=== PATIENT | male | born 1970 | race Caucasian/White ===

== ENCOUNTER 2022-02-01 18:45 | Inpatient (IN) | payer BC ==
[~2022-02-01] VITALS: Ht 180.3 cm; Wt 121.3 kg
[2022-02-01 22:55] LABS: Base Excess Venous -1.5 mmol/L; Bicarbonate Venous 22.3 mmol/L (24.0-30.0); PCO2 Venous 47.3 mmHg (38-42); pH Blood Venous 7.32 (7.34-7.37)
[2022-02-02 02:06] LABS: BASOPHILS ABSOLUTE AUTO 0.04 K/mm3 (0.00-0.23); BASOPHILS PERCENT AUTO 0 % (0-2); EOSINOPHILS ABSOLUTE AUTO 0.01 K/mm3 (0.00-0.68); EOSINOPHILS PERCENT AUTO 0 % (0-6); Hematocrit 54.6 % (37.0-53.0); IMMATURE GRAN ABSOLUTE AUTO 0.05 K/mm3 (0.00-0.10); IMMATURE GRAN PERCENT AUTO 0 % (0-1); LYMPHOCYTES ABSOLUTE AUTO 0.36 K/mm3 (0.84-5.20); LYMPHOCYTES PERCENT AUTO 3 % (21-46); MONOCYTES ABSOLUTE AUTO 0.17 K/mm3 (0.16-1.47); MONOCYTES PERCENT AUTO 1 % (4-13); Mean Corpuscular HGB 31.9 pg (26.0-34.0); Mean Corpuscular Volume 97 fL (80-100); Mean Platelet Volume 10.7 fL (9.1-12.4); NEUTROPHILS ABSOLUTE AUTO 12.96 K/mm3 (1.96-9.15); NEUTROPHILS PERCENT AUTO 95 % (41-73); Platelet Count 214 K/mm3 (150-400); RDW Coefficient Variation 13.7 % (11.7-14.2); RDW Standard Deviation 49.9 fL (35.1-46.3); Red Blood Cell Count 5.64 M/mm3 (4.30-5.90); White Blood Cell Count 13.59 K/mm3 (4.00-11.30)
[2022-02-02 02:24] LABS: Albumin, Blood 3.6 g/dL (3.4-5.0); Albumin/Globulin Ratio 0.8 (0.8-1.8); Bilirubin, Total 0.6 mg/dL (0.1-1.0); Bun/Creatinine Ratio 11.6 (12.0-20.0); Calcium, Blood 8.6 mg/dL (8.5-10.1); Creatinine, Blood 1.38 mg/dL (0.60-1.20); Globulin, Blood 4.3 g/dL (2.2-4.0); Magnesium, Blood 2.8 mg/dL (1.6-2.4); Potassium, Blood 3.8 mmol/L (3.5-5.5); Total Protein, Blood 7.9 g/dL (6.4-8.2)
--- NOTE | 2022-02-02 03:32 | NUR ---
CALL TO DOCTOR THIS RN CALLS DR LARSEN TO NOTIFY OF LACTIC, NOTIFIED THAT RESIDENT DR Stone SAW PT. THIS RN DISCUSSES CONCERN WITH DR Stone REGARDING LACTIC, PT CAP REFILL, LETHARGY, AND NO FLUID BOLUSES. RESIDENT DR Stoen STATES CONCERN FOR PT'S CARDIAC FUNCTION AND WANTS TO BE CAREFUL WITH ADMIN OF FLUID, ORDER FOR NS 125 MLS/HR FOR X2 BAGS AND X1 500 ML BOLUS OF NS OVER AN HOUR TO BE GIVEN NOW.
[2022-02-02 04:43] LABS: PCO2 Arterial 39.5 mmHg (35-45); PO2 Arterial 83.8 mmHg (80-100)
[2022-02-02 04:45] LABS: pH Blood Arterial 7.28 (7.35-7.45)
[2022-02-02 06:39] LABS: U Amphetamine Screen DETECTED; U Barbituate Screen Not Detected; U Benzodiazapine Screen Not Detected; U Buprenorphine Screen Not Detected; U Cannabinoids Screen DETECTED; U Cocaine Screen Not Detected; U Methadone Screen Not Detected; U Methamphetamine Screen DETECTED; U Opiates Screen Not Detected; U Oxycodone Screen Not Detected; U Phencyclidine Screen Not Detected; U Propoxyphene Screen Not Detected
--- NOTE | 2022-02-02 06:49 | NUR ---
CALL TO DR MARTÍNEZ THIS RN CALLS TO NOTIFY DR MARTÍNEZ OF PT C/O WORSENED BREATHING RECENTLY THIS AM, NOTIFIED THAT RESULT OF CHEST XRAY HAS NOT BEEN REPORTED BACK AND REPEAT IS BEING DONE PER ORDER NOW. DR MARTÍNEZ TO REVIEW XRAY.
--- NOTE | 2022-02-02 08:28 | NUR ---
SHIFT SUMMARY PT AOX4 WHEN ARRIVED FROM ER, APPEARED LETHARGIC. INCREASED IN SOMNOLENCE AFTER ARRIVAL. UNABLE TO ANSWER QUESTIONS FOR ADMISSION BY THIS RN. UNSURE OF MEDS, STATES HE HAS NOT BEEN TAKING THEM. DENIED PAIN. BREATHING APPEARED LABORED, PT ARRIVED ON CPAP ON 2L, THIS RN INCREASED TO 3 L D/T DESATS INTO 80'S. ABG REPORTED BACK TO THIS RN CRITICAL THIS AM AFTER PT ARRIVAL TO PCU FROM ER. RESIDENT NOTIFIED, BICARB ORDERED AND ADMIN. PT URINATED IN URINAL 600 MLS OF HARSHIL COLORED URINE. LS COARSE WITH CRACKLES IN LOWER BASES.
[2022-02-02 09:44] LABS: SARS-Cov-2 (COVID-19) PCR, MMC NEGATIVE (NEGATIVE)
[2022-02-02] MEDS ORDERED: PROAIR RESPICL90 MCG INH (12:05)
[2022-02-02] MEDS ORDERED: ANORO ELLIPTA1 EACH INH (12:06)
[2022-02-02] MEDS ORDERED: Aspir 8181 MG PO (12:06)
[2022-02-02] MEDS ORDERED: ATOR20 PO (12:07)
[2022-02-02] MEDS ORDERED: Prinivil10 MG PO (12:08)
[2022-02-02] MEDS ORDERED: LISI5 PO (12:09)
[2022-02-02] MEDS ORDERED: METF500 PO (12:10)
[2022-02-02] MEDS ORDERED: METO50ER PO (12:11)
[2022-02-02] MEDS ORDERED: ALDACTONE25 MG PO (12:12)
[2022-02-02] MEDS ORDERED: SYMBICORT 16010.2 GM INH (12:16)
[2022-02-02] MEDS ORDERED: TORSE20 PO (12:18)
[2022-02-02] MEDS ORDERED: FURO40 PO (12:28)
[2022-02-02] MEDS ORDERED: POTCHL20ER PO (12:28)
--- NOTE | 2022-02-02 16:32 | NUR ---
SHIFT SUMMARY PATIENT LETHARGIC THIS AM AT BEGINNING OF SHIFT AND DEPENDENT ON CPAP DUE TO LETHARGY TO MAINTAIN SATS. PATIENT WAS ABLE TO WAKE UP ENOUGH TO EAT LUNCH WITH 3L NC WITH O2 SATS >92%. PATIENT WAS PUT BACK ON CPAP AROUND 1330 DUE TO FALLING ASLEEP AND DESATTING INTO THE MID 80S. CPAP WITH 3L BLEED IN. RR 20-26 THROUGHOUT SHIFT. SBP 140-150S. PATIENT PUT BACK ON NC WITH 3L AROUND 1500 AND HAS BEEN MAINTAINING O2 SATS >92% SINCE. CURRENTLY VISITING WITH SIGNIFICANT OTHER IN ROOM. PATIENT BECOMES TACHYPNEIC WITH CONVERSATION BUT IS ABLE TO MAINTAIN O2 SATS STILL. PATIENT ANSWERING QUESTIONS APPROPRIATELY AND FULLY ORIENTED. MD CONNOLLY WITH ORDERS FOR 1.5 LITERS OF SODIUM BICARB DRIP. PATIENT FINISHED 1L AT 1620, THIS RN WAS ABOUT TO GIVE THE REST PER EMAR WHILE MD BURDEN AT BEDSIDE; MD BURDEN WITH VERBAL ORDER TO NOT GIVE THE REMAINING 500MLS OF THE SODIUM BICARB DRIP. SEE EMAR. PATIENT GIVEN FLUTTER VALVE AND ENCOURAGED TO CLEAR SECRETIONS. PRODUCTIVE COUGH NOTED. DENIES CHEST PAIN. PATIENT'S MED REC DONE BY THIS RN PER FAXED MED LIST FROM [facility]; PATIENT STATES HE IS UNSURE WHAT HE TAKES AND WHAT HE IS SUPPOSED TO TAKE. ADMITS TO NOT TAKING ANY MEDS FOR THE LAST MONTH. SIGNIFICANT OTHER AT BEDSIDE. BED IN LOWEST POSITION AND CALL LIGHT WITHIN REACH.
[2022-02-03 03:49] LABS: BASOPHILS ABSOLUTE AUTO 0.03 K/mm3 (0.00-0.23); BASOPHILS PERCENT AUTO 0 % (0-2); EOSINOPHILS PERCENT AUTO 0 % (0-6); Hematocrit 48.6 % (37.0-53.0); Hemoglobin 16.6 g/dL (13.5-17.5); IMMATURE GRAN ABSOLUTE AUTO 0.17 K/mm3 (0.00-0.10); IMMATURE GRAN PERCENT AUTO 1 % (0-1); LYMPHOCYTES ABSOLUTE AUTO 0.68 K/mm3 (0.84-5.20); LYMPHOCYTES PERCENT AUTO 3 % (21-46); MONOCYTES ABSOLUTE AUTO 0.66 K/mm3 (0.16-1.47); MONOCYTES PERCENT AUTO 3 % (4-13); Mean Corpuscular HGB 32.5 pg (26.0-34.0); Mean Corpuscular HGB Conc 34.2 g/dL (31.5-36.5); Mean Corpuscular Volume 95 fL (80-100); Mean Platelet Volume 11.1 fL (9.1-12.4); NEUTROPHILS ABSOLUTE AUTO 20.17 K/mm3 (1.96-9.15); NEUTROPHILS PERCENT AUTO 93 % (41-73); Platelet Count 247 K/mm3 (150-400); RDW Coefficient Variation 13.8 % (11.7-14.2); Red Blood Cell Count 5.11 M/mm3 (4.30-5.90); White Blood Cell Count 21.71 K/mm3 (4.00-11.30)
[2022-02-03 04:09] LABS: Albumin, Blood 3.2 g/dL (3.4-5.0); Anion Gap 4 mmol/L (6-16); Blood Urea Nitrogen 26 mg/dL (8-24); Bun/Creatinine Ratio 20.6 (12.0-20.0); CO2, Blood 28 mmol/L (21-32); Calcium, Blood 8.5 mg/dL (8.5-10.1); Chloride, Blood 104 mmol/L (98-108); Creatinine, Blood 1.26 mg/dL (0.60-1.20); Glomerular Filtration Rate 70 (60-); Glucose, Blood 204 mg/dL (70-99); Magnesium, Blood 2.5 mg/dL (1.6-2.4); Phosphorus, Blood 2.6 mg/dL (2.5-4.9); Potassium, Blood 4.9 mmol/L (3.5-5.5); Sodium, Blood 136 mmol/L (136-145)
--- NOTE | 2022-02-03 06:12 | NUR ---
Shift Summary Pt oriented when awake, lethargic at start of shift. Placed on Cpap d/t desat to 88-89% on 3 L O2 via NC. Pt rhythm appears ST BBB 90's-100's. Sats 90-93% on Cpap at 4 L. No edema noted to BLE, some non-pitting edema to BUE. RT changes pt from CPAP to Bipap Ipap 20, Epap 16 3-4 L bleed in of O2. Pt sats 89-95% on bipap, issues with maintaining good seal on mask. Klaus RT changed out mask in night which seemed to help, at start of shift, mask found to have a tear in the lining. Pt sleeps heavily throughout shift, diaphoretic at times while asleep as per prior night. ST BBB 80's-100's.
--- NOTE | 2022-02-03 09:40 | NUR ---
ASSUMPTION OF CARE THIS RN ASSUMED CARE OF PATIENT AT 0700. REPORT TAKEN FROM CAMELIA JARAMILLO. PATIENT IS ON 4L VIA NC WITH O2 SATS >92%. RT TO BEDSIDE THIS AM WITH BREATHING TREATMENT. PATIENT DENIES ALL PAIN. MEDICATED PER EMAR. VITALS STABLE. PATIENT REFUSED BIPAP FOR THIS RN AND WANTS TO REMAIN ON THE NASAL CANULA FOR NOW. THIS RN WILL REASSESS IF NEED ARISES FOR BIPAP WHILE PATIENT IS SLEEPING. PATIENT CALLING APPROPRIATELY AND ORIENTED FULLY. BED IN LOWEST POSITION AND CALL LIGHT WITHIN REACH.
--- NOTE | 2022-02-03 13:35 | NUR ---
Spiritual Care - Nurse Request Pt. is awake in bed and sobbing. Taking a pause in his grief, he welcomes my visit. Pt. displays evidence of unresolved greif do to the recent loss of his mother. Through theraputic listening and a calming presence Pt. reveals additional sources of loss in his life, and verbalizes his role in not taking better care of his own health. Waves of catharsis are balanced by engagement. Prayed with Pt. Recommend Bereavement support. Will provide Pt. with local bereavement group contact info. Pt. verbalizes gratitude for the spiritual care visit.
--- NOTE | 2022-02-03 17:23 | NUR ---
SHIFT SUMMARY PATIENT A&OX4. PATIENT ON 3L VIA NC CURRENTLY WITH O2 SATS >94%. PATIENT SBA TO BATHROOM WITH GAIT BELT AND ASSIST FROM STAFF DUE TO BEING THE FIRST TIME HE IS GETTING UP SINCE ADMISSION. PATIENT STEADY ON HIS FEET. VITALS STABLE. PATIENT WITH COMPLAINTS OF CONSTIPATION. HYPERACTIVE BOWEL SOUNDS NOTED. STOMACH DISTENDED AND FIRM IN THE UPPER QUADRANTS OF ABDOMEN. PATIENT COMPLAINS OF FEELING BLOATED AND BELCHING. MD GODDARD NOTIFIED. ORDERS FOR STOOL SOFTENERS AND MIRALAX ORDERED. PATIENT TOLERATED WELL. PATIENT CURRENTLY STATING THAT HE IS PASSING GAS. NO ACUTE EVENTS DURING THIS SHIFT. VITALS STABLE. PATIENT EATING DINNER WITH SIGNIFICANT OTHER AT BEDSIDE. BED IN LOWEST POSITION AND CALL LIGHT WITHIN REACH
--- NOTE | 2022-02-04 05:56 | NUR ---
PT SLEPT MAJORITY OF NIGHT. RT APPLIED BIPAP AND PT TOLERATED FOR ANOUT 4 HOURS AND RIPPED IT OFF AND REFUSED REAPPLIED. NASAL CANNULA APPLIED AT THIS TIME AND FOR REMAINDER OF NIGHT.
--- NOTE | 2022-02-04 10:51 | NUR ---
ASSUMPTION OF CARE THIS RN ASSUMED CARE OF PATIENT AT 0700. REPORT TAKEN FROM MARY JARAMILLO. PATIENT ON 3L VIA NC WITH STABLE VITALS. DENIES SOB. STATES HE "FEELS GOOD". PATIENT SBA AND WALKED AROUND ROOM THIS MORNING. MEDICATED PER EMAR. PATIENT IN BED WITH BED IN LOWEST POSITION AND CALL LIGHT WITHIN REACH
--- NOTE | 2022-02-04 16:56 | NUR ---
SHIFT SUMMARY PATIENT A&OX4 THROUGHOUT THIS SHIFT. PATIENT HAD NO OCCASIONS OF LETHARGY FOR THIS RN. INDEPENDENT WITH TRANSFERRING/AMBULATION AND ADLs. NO ACUTE EVENTS DURING THIS SHIFT. VITALS STABLE. PATIENT ON 2L NC WITH O2 SATS 92-95%. CONTINUES TO BE DYSPNEIC WITH EXERTION. PATIENT HAD A SHOWER THIS AFTERNOON. CONTINUES TO HAVE PERIODS WHERE HE IS DIAPHORETIC BUT VERBALIZES RELIEF WITH FAN ON BEDSIDE TABLE. PATIENT DENIES PAIN. CURRENTLY IN BED HAVING A CONVERSATION WITH SIGNIFICANT OTHER WHO IS IN THE ROOM VISITING. BED IN LOWEST POSITION, CALL LIGHT WITHIN REACH. WILL CONTINUE TO MONITOR UNTIL SHIFT CHANGE AT 1900.
--- NOTE | 2022-02-05 01:32 | NUR ---
PT DESATTING WHILE ASLEEP, INITIALLY REFUSING BIPAP. ATTEMPTED NC, PT SATTING WELL FOR A COUPLE HOURS THEN DESATS AND BECOMES BRADYCARDIC IN THE 40'S. READJUSTED BIPAP, DOES NOT SEEM TO BE LEAKING AT THIS TIME (PT C/O LEAK KEEPING HIM AWAKE), CURRENTLY O2 SATS >90% WITH BIPAP ON. OTHERWISE PT STATING "I FEEL MUCH BETTER".
[2022-02-05 03:20] LABS: BASOPHILS ABSOLUTE AUTO 0.03 K/mm3 (0.00-0.23); BASOPHILS PERCENT AUTO 0 % (0-2); EOSINOPHILS PERCENT AUTO 0 % (0-6); Hematocrit 52.2 % (37.0-53.0); Hemoglobin 17.3 g/dL (13.5-17.5); IMMATURE GRAN ABSOLUTE AUTO 0.19 K/mm3 (0.00-0.10); IMMATURE GRAN PERCENT AUTO 1 % (0-1); LYMPHOCYTES ABSOLUTE AUTO 0.88 K/mm3 (0.84-5.20); LYMPHOCYTES PERCENT AUTO 6 % (21-46); MONOCYTES ABSOLUTE AUTO 0.58 K/mm3 (0.16-1.47); MONOCYTES PERCENT AUTO 4 % (4-13); Mean Corpuscular HGB 31.9 pg (26.0-34.0); Mean Corpuscular HGB Conc 33.1 g/dL (31.5-36.5); Mean Corpuscular Volume 96 fL (80-100); NEUTROPHILS ABSOLUTE AUTO 13.63 K/mm3 (1.96-9.15); NEUTROPHILS PERCENT AUTO 89 % (41-73); Platelet Count 269 K/mm3 (150-400); RDW Coefficient Variation 13.6 % (11.7-14.2); RDW Standard Deviation 48.6 fL (35.1-46.3); Red Blood Cell Count 5.43 M/mm3 (4.30-5.90); White Blood Cell Count 15.31 K/mm3 (4.00-11.30)
[2022-02-05 03:38] LABS: Albumin, Blood 3.3 g/dL (3.4-5.0); Anion Gap 7 mmol/L (6-16); Blood Urea Nitrogen 40 mg/dL (8-24); CO2, Blood 28 mmol/L (21-32); Calcium, Blood 8.6 mg/dL (8.5-10.1); Chloride, Blood 100 mmol/L (98-108); Creatinine, Blood 1.29 mg/dL (0.60-1.20); Glomerular Filtration Rate 68 (60-); Glucose, Blood 195 mg/dL (70-99); Phosphorus, Blood 3.4 mg/dL (2.5-4.9); Potassium, Blood 5.1 mmol/L (3.5-5.5); Sodium, Blood 135 mmol/L (136-145)
--- NOTE | 2022-02-05 05:49 | NUR ---
SHIFT SUMMARY PT REMAINS ALERT AND ORIENTED, ABLE TO SLEEP ON/OFF T/O THE NIGHT. TOLERATING BIPAP BETTER AFTER ADJUSTMENT. NO ACUTE CHANGES TO PT CONDITION, DENIES SOB WHILE AT REST. REMAINS DYSPNEIC UPON EXERTION. VSS. WILL REPORT TO ONCOMING NURSE.
--- NOTE | 2022-02-05 17:08 | NUR ---
SHIFT SUMMARY PT HAS EXPRESSED DESIRE TO BE DISCHARGED BUT IS WILLING TO COMPLY AND UNDERSTANDS THE NEED FOR FURTHER INPATIENT STAY. PT WAS UP AND AMBULATING IN THE HALLWAYS WITH A FAMILY MEMBER FOR ESCORT. PT DEMONSTRATED NO PHYSICAL OR RESPIRATORY DIFFICULTY WHILE AMBULATING. SBP HAS REMAINED ELEVATED, 150'S, ALL OTHER VITALS STABLE.
[2022-02-06 04:17] LABS: BASOPHILS ABSOLUTE AUTO 0.08 K/mm3 (0.00-0.23); BASOPHILS PERCENT AUTO 1 % (0-2); EOSINOPHILS ABSOLUTE AUTO 0.04 K/mm3 (0.00-0.68); EOSINOPHILS PERCENT AUTO 0 % (0-6); Hematocrit 55.9 % (37.0-53.0); Hemoglobin 18.7 g/dL (13.5-17.5); IMMATURE GRAN ABSOLUTE AUTO 0.28 K/mm3 (0.00-0.10); IMMATURE GRAN PERCENT AUTO 2 % (0-1); LYMPHOCYTES ABSOLUTE AUTO 2.61 K/mm3 (0.84-5.20); LYMPHOCYTES PERCENT AUTO 21 % (21-46); MONOCYTES ABSOLUTE AUTO 1.26 K/mm3 (0.16-1.47); MONOCYTES PERCENT AUTO 10 % (4-13); Mean Corpuscular HGB 31.6 pg (26.0-34.0); Mean Corpuscular HGB Conc 33.5 g/dL (31.5-36.5); Mean Corpuscular Volume 95 fL (80-100); NEUTROPHILS ABSOLUTE AUTO 8.34 K/mm3 (1.96-9.15); NEUTROPHILS PERCENT AUTO 66 % (41-73); Platelet Count 265 K/mm3 (150-400); RDW Coefficient Variation 13.3 % (11.7-14.2); RDW Standard Deviation 46.8 fL (35.1-46.3); Red Blood Cell Count 5.91 M/mm3 (4.30-5.90); White Blood Cell Count 12.61 K/mm3 (4.00-11.30)
[2022-02-06 04:45] LABS: Albumin, Blood 3.2 g/dL (3.4-5.0); Anion Gap 11 mmol/L (6-16); Blood Urea Nitrogen 41 mg/dL (8-24); Bun/Creatinine Ratio 29.5 (12.0-20.0); CO2, Blood 25 mmol/L (21-32); Calcium, Blood 8.7 mg/dL (8.5-10.1); Chloride, Blood 100 mmol/L (98-108); Creatinine, Blood 1.39 mg/dL (0.60-1.20); Glomerular Filtration Rate 62 (60-); Glucose, Blood 136 mg/dL (70-99); Phosphorus, Blood 3.7 mg/dL (2.5-4.9); Potassium, Blood 4.2 mmol/L (3.5-5.5); Sodium, Blood 136 mmol/L (136-145)
--- NOTE | 2022-02-06 06:07 | NUR ---
SHIFT SUMMARY PT A&O X4. VSS; SBP 120'S - 130'S, HR 80'S - 90'S SR, O2 90 - 93% ON RA. PT DENIES SOB, CHEST PAIN OR CHEST PRESSURE. PT RESTING ON AND OFF THROUGHOUT SHIFT. PT O2 SATS DECREASED TO 88% WHILE SLEEPING WITHOUT CPAP. CPAP PLACED ON PT. PT KEPT IT ON FOR SEVERAL HOURS AND THEN REFUSED TO PUT IT BACK ON. EDUCATION PROVIDED. PT AGREED TO PUT ON NC; CURRENTLY ON 2 L NC. O2 SATS SUSTAINING AT 94 - 97%. PT ALSO HAD A FEW EPISODES OF BRADYCARDIA W/ HR OF 48 - 57 WHILE SLEEPING. PT REPOSITIONING INDEPENDENTLY. CALL LIGHT IN REACH AND BED IN LOWEST POSITION
[2022-02-06] MEDS ORDERED: NICO21TP TOP (13:30)
[2022-02-06] MEDS ORDERED: NIFE30ER PO (13:30)
[2022-02-06] MEDS ORDERED: RAYOS5 M1 PO (13:38)
--- NOTE | 2022-02-06 15:18 | NUR ---
DISCHARGE SUMMARY PT AMBULATED TO PERSONAL VEHICLE ESCORTED BY FAMILY MEMBER. ALL PERSONAL BELONGINGS AND DISCHARGE INSTRUCTIONS WERE IN THE PATIENT'S POSSESSION AT TIME OF DISCHARGE. ALL QUESTIONS AND CONCERNS WERE ADDRESSED PRIOR TO DISCHARGE. PT STATED AN UNDERSTANDING OF WHOM TO CALL WITH FURTHER QUESTIONS OR CONCERNS AND WHEN TO SEEK FURTHER MEDICAL ATTENTION.
== END 2022-02-06 13:59 | disposition home or self-care (01) | DRG 871 ==
LOC: ER 18:45 → PCU 02-02 00:13
PROVIDERS: Family Medicine; Student in an Organized Health Care Education/Training Program; ADMIT Internal Medicine
PROC: 3E03329 Introduction of Other Anti-infective into Peripheral Vein, Percutaneous Approach (ICD-10-PCS; principal; 2022-02-02)
PROC: 5A09457 Assistance with Respiratory Ventilation, 24-96 Consecutive Hours, Continuous Positive Airway Pressure (ICD-10-PCS; 2022-02-02)
DX: A41.9 Sepsis, unspecified organism (principal); J18.9 Pneumonia, unspecified organism; J96.01 Acute respiratory failure with hypoxia; J96.02 Acute respiratory failure with hypercapnia; J44.1 Chronic obstructive pulmonary disease with (acute) exacerbation; E87.29 Other acidosis; J44.0 Chronic obstructive pulmonary disease with (acute) lower respiratory infection; I50.42 Chronic combined systolic (congestive) and diastolic (congestive) heart failure; Z20.822 Contact with and (suspected) exposure to COVID-19; F15.10 Other stimulant abuse, uncomplicated; R65.20 Severe sepsis without septic shock; F17.210 Nicotine dependence, cigarettes, uncomplicated; G47.33 Obstructive sleep apnea (adult) (pediatric); N18.9 Chronic kidney disease, unspecified; E11.22 Type 2 diabetes mellitus with diabetic chronic kidney disease; Z71.51 Drug abuse counseling and surveillance of drug abuser
CPT/HCPCS: 36415; 36600; 71045; 80053; 80069; 82803; 82947; 83036; 83605; 83735; 83880; 84484; 85025; 87040; 93005; 93010; 94640; 94644; 94645; 94660; 94664; 94760; 94761; 94762; 96365; 96375; 99285-25; 99406; A9270; J0360; J0456; J0696; J1650; J1815; J2930; J3475; J7040; J7050; J7512; U0004

== ENCOUNTER → 2022-02-01 | Outpatient (CLI) | payer BC ==
[~2022-02-01] MED LIST: ALDACTONE25 MG PO; ANORO ELLIPTA1 EACH INH; ATOR20 PO; Aspir 8181 MG PO; FURO40 PO; LISI5 PO; METF500 PO; METO50ER PO; NICO21TP TOP; NIFE30ER PO; POTCHL20ER PO; PROAIR RESPICL90 MCG INH; Prinivil10 MG PO; RAYOS5 M1 PO; SYMBICORT 16010.2 GM INH; TORSE20 PO
[2022-02-01 17:53] LABS: BASOPHILS ABSOLUTE AUTO 0.09 K/mm3 (0.00-0.23); BASOPHILS PERCENT AUTO 1 % (0-2); EOSINOPHILS PERCENT AUTO 3 % (0-6); Hemoglobin 19.1 g/dL (13.5-17.5); IMMATURE GRAN ABSOLUTE AUTO 0.07 K/mm3 (0.00-0.10); IMMATURE GRAN PERCENT AUTO 0 % (0-1); LYMPHOCYTES ABSOLUTE AUTO 0.69 K/mm3 (0.84-5.20); LYMPHOCYTES PERCENT AUTO 4 % (21-46); MONOCYTES ABSOLUTE AUTO 0.81 K/mm3 (0.16-1.47); MONOCYTES PERCENT AUTO 5 % (4-13); Mean Corpuscular HGB 32.8 pg (26.0-34.0); Mean Corpuscular HGB Conc 34.7 g/dL (31.5-36.5); Mean Corpuscular Volume 94 fL (80-100); NEUTROPHILS ABSOLUTE AUTO 14.35 K/mm3 (1.96-9.15); NEUTROPHILS PERCENT AUTO 87 % (41-73); Platelet Count 242 K/mm3 (150-400); RDW Coefficient Variation 13.8 % (11.7-14.2); RDW Standard Deviation 47.8 fL (35.1-46.3); Red Blood Cell Count 5.83 M/mm3 (4.30-5.90); White Blood Cell Count 16.51 K/mm3 (4.00-11.30)
[2022-02-01 18:04] LABS: Albumin, Blood 4.2 g/dL (3.4-5.0); Albumin/Globulin Ratio 1.1 (0.8-1.8); Bilirubin, Total 1.4 mg/dL (0.1-1.0); Bun/Creatinine Ratio 9.6 (12.0-20.0); Calcium, Blood 9.2 mg/dL (8.5-10.1); Creatinine, Blood 1.46 mg/dL (0.60-1.20); Globulin, Blood 3.7 g/dL (2.2-4.0); Potassium, Blood 4.4 mmol/L (3.5-5.5); Total Protein, Blood 7.9 g/dL (6.4-8.2)
== END | disposition home or self-care (01) ==
LOC: LAB SHORT 17:49 → LAB 17:49
PROVIDERS: Physician Assistant Medical
DX: R06.00 Dyspnea, unspecified (principal)
CPT/HCPCS: 80053; 83880; 84484; 85025; 85379

== ENCOUNTER 2023-08-13 16:26 | Observation (INO) | payer OTHER ==
[2023-08-13] VITALS (16 sets, daily range): BP systolic 99–193; BP diastolic 67–139
[~2023-08-13] VITALS: Ht 180.3 cm; Wt 117.9 kg
[2023-08-13] MEDS ORDERED: NS 1,000 ML IV SCH (16:40)
[2023-08-13] MEDS ORDERED: Ketorolac Tromethamine 15mg Vial IV ONE (16:40)
[2023-08-13] MEDS ORDERED: Ondansetron HCl 2 MG / ML 2ML Vial IV ONE ×2 (16:50→17:55)
[2023-08-13 17:01] LABS: BASOPHILS ABSOLUTE AUTO 0.09 K/mm3 (0.00-0.23); BASOPHILS PERCENT AUTO 1 % (0-2); EOSINOPHILS PERCENT AUTO 2 % (0-6); Hemoglobin 19.3 g/dL (13.5-17.5); IMMATURE GRAN ABSOLUTE AUTO 0.04 K/mm3 (0.00-0.10); IMMATURE GRAN PERCENT AUTO 0 % (0-1); LYMPHOCYTES ABSOLUTE AUTO 1.19 K/mm3 (0.84-5.20); LYMPHOCYTES PERCENT AUTO 9 % (21-46); MONOCYTES ABSOLUTE AUTO 0.57 K/mm3 (0.16-1.47); MONOCYTES PERCENT AUTO 4 % (4-13); Mean Corpuscular HGB 30.8 pg (26.0-34.0); Mean Corpuscular HGB Conc 33.8 g/dL (31.5-36.5); Mean Corpuscular Volume 91 fL (80-100); Mean Platelet Volume 10.5 fL (9.1-12.4); NEUTROPHILS ABSOLUTE AUTO 11.01 K/mm3 (1.96-9.15); NEUTROPHILS PERCENT AUTO 83 % (41-73); Platelet Count 297 K/mm3 (150-400); RDW Standard Deviation 47.5 fL (35.1-46.3); Red Blood Cell Count 6.26 M/mm3 (4.30-5.90)
[2023-08-13 17:05] LABS: Hematocrit 57.1 % (37.0-53.0)
[2023-08-13] MEDS ORDERED: FentaNYL Citrate 50 MCG/ML 2 ML Injection IV ONE ×3 (17:10→20:45)
[2023-08-13 17:29] LABS: Albumin, Blood 4.2 g/dL (3.4-5.0); Albumin/Globulin Ratio 1.1 (0.8-1.8); Bilirubin, Total 1.5 mg/dL (0.1-1.0); Bun/Creatinine Ratio 15.9 (12.0-20.0); Calcium, Blood 9.7 mg/dL (8.5-10.1); Creatinine, Blood 1.26 mg/dL (0.60-1.20); Globulin, Blood 3.8 g/dL (2.2-4.0); Magnesium, Blood 2.2 mg/dL (1.6-2.4)
[2023-08-13] MEDS ORDERED: HYDROmorphone HCl/Pf 1MG SYR IV PRN (17:55)
[2023-08-13] MEDS ORDERED: EpiNEPhrine 1 MG/1 ML 1ML Vial ONE (18:18)
[2023-08-13] MEDS ORDERED: Lactated Ringer's 1,000 ML IV SCH ×2 (18:25→20:20)
[2023-08-13] MEDS ORDERED: propofoL 20 ML IV ONE ×2 (18:45→19:48)
[2023-08-13] MEDS ORDERED: FentaNYL Citrate 50 MCG/ML 2 ML Injection ONE (18:45)
[2023-08-13] MEDS ORDERED: Lidocaine HCl 2% 20 ML MDV ONE (18:45)
[2023-08-13] MEDS ORDERED: Dexamethasone Sod Phos 10 MG/ML 1ML VIAL ONE (18:45)
[2023-08-13] MEDS ORDERED: Ondansetron HCl 2 MG / ML 2ML Vial ONE (18:45)
[2023-08-13] MEDS ORDERED: Sugammadex Sodium 200 MG/2ML SDV (100 MG/ML) ONE (18:45)
[2023-08-13] MEDS ORDERED: Rocuronium Bromide 10 MG/ML 5ML Injection IV ONE ×2 (18:45→19:06)
[2023-08-13] MEDS ORDERED: Potassium Chlo20 ME1 PO (18:57)
[2023-08-13] MEDS ORDERED: ZOLOFT25 MG PO (18:57)
--- NOTE | 2023-08-13 19:15 | NUR ---
08/13/231914 Hansa Herrera WITH DR. STEARNS IN OR 3; SEE ANESTHESIA RECORDS.
--- NOTE | 2023-08-13 19:35 | NUR ---
History, Chart, Medications and Allergies reviewed before start of procedure. Patient up to Ambulate independently with standby assist. Pre-Op teaching done. Pt verbalizes understanding. Patient confirms NPO status and agrees with scheduled surgery. Patient States Post-Procedure ride home has been arranged.
[2023-08-13] MEDS ORDERED: NS IV SCH (19:55)
[2023-08-13] MEDS ORDERED: propofoL 100 ML IV SCH (19:55)
[2023-08-13] MEDS ORDERED: ROCURONIUM BROMIDE IV SCH (19:55)
[2023-08-13] MEDS ORDERED: Lactated Ringer's 1,000 ML IV ONE (20:22)
[2023-08-13 20:33] LABS: Hemoglobin 18.8 g/dL (13.5-17.5)
[2023-08-13 21:05] LABS: Source, Urine Foley catheter
[2023-08-13 21:09] LABS: Bilirubin, Urine Neg (Neg); Blood, Urine 4+ (Neg); Color, Urine Yellow (P-Yellow); Glucose Qualitative, Urine Neg (Neg); Ketones, Urine 2+ (Neg); Leukocyte Esterase, Urine Neg (Neg); Nitrite, Urine Neg (Neg); Protein, Urine 3+ (Neg); Specific Gravity, Urine 1.015 (1.003-1.022); Urobilinogen, Urine NORM (Normal)
[2023-08-13 21:20] LABS: Appearance, Urine Hazy (Clear)
[2023-08-13 21:21] LABS: Bacteria Mod /hpf; Mucus Light (0-Heavy); Squamous Epithelial Cells Rare /hpf (Few); White Blood Cells, Urine 0-2 /hpf (0-5)
--- NOTE | 2023-08-13 21:46 | NUR ---
SPOKE W PT FRIEND, PERLA MEDINA AT , UPDATED HER THAT PT WILL TRANSFER TO [facility]. SHE STATES THAT SHE HAS HIS WALLET & PHONE.
--- NOTE | 2023-08-13 22:51 | NUR ---
ASSUMED CARE PT ARRIVED IN UNIT AT [address] STEARNS AT BEDSIDE W/ REPORT RECIEVED FROM PREOP NURSE. DR STEARNS ORDERED PROPOFOL AND ROCURONIUM D/T PT'S ACTIVE BLEED IN ESOPHEGOUS. DR COE CAME TO BEDSIDE W/ NO CHANGE IN ORDERS. DIFFICULTY FINDING ADDITIONAL ACCESS AND DR PARDO WAS CALLED FOR CENTRAL LINE INSERTION. PT BEGAN TO BECOME AGITATED DURING INSERTION AND ROCURONIUM/PROPOFOL WAS TITRATED UP PER DR PARDO. REACH ARRIVED TO TAKE PT TO [facility] AND REQUESTED ADDITIONAL MEDICATIONS W/ 2 PROPOFOL BOTTLES+ROCURONIUM BAG+LEVOPHED SENT W/ PT TO [facility]. MEDICATIONS SCANNED, BUT NOT ADMINISTERED BY THIS RN. LEVOPHED SENT PER REQUEST OF DR PARDO. REPORT GIVEN TO DEBRA UGALDE @ [facility]; NOTIFIED RN THAT CLOTHES SENT W/ PT. PT OUT AT 2234. PT TACHYCARDIC W/ SBP 120-130'S. LUNG SOUNDS WERE COURSE BILATERALLY. PT HAD AROUND 100ML'S OF RUBIO RED BLOOD SUCTIONED ORALLY. ABDOMINAL SOUNDS AUSCULTATED. BILATERAL EXTREMITIES PURPLE AND EDEMATOUS (+2). CAP REFILL 6~ SECONDS. SATS >92% ON VENTILATOR. 16/540/5/100%
== END 2023-08-13 22:35 | disposition short-term general hospital (02) ==
LOC: ER 16:26 → ICUE 16:27 → ER 18:30 → ICUE 19:47
PROVIDERS: Anesthesiology; Internal Medicine Gastroenterology; Physician Assistant; ADMIT Student in an Organized Health Care Education/Training Program
PROC: 0DC58ZZ Extirpation of Matter from Esophagus, Via Natural or Artificial Opening Endoscopic (ICD-10-PCS; principal; 2023-08-13 18:30)
DX: T18.128A Food in esophagus causing other injury, initial encounter (principal); S27.813A Laceration of esophagus (thoracic part), initial encounter; I11.0 Hypertensive heart disease with heart failure; I50.9 Heart failure, unspecified; E11.9 Type 2 diabetes mellitus without complications; J44.9 Chronic obstructive pulmonary disease, unspecified; E78.5 Hyperlipidemia, unspecified; F17.210 Nicotine dependence, cigarettes, uncomplicated; Z79.899 Other long term (current) drug therapy; Z79.84 Long term (current) use of oral hypoglycemic drugs; X58.XXXA Exposure to other specified factors, initial encounter
CPT/HCPCS: 36415; 36556; 51703; 71045; 71260; 80053; 81001; 82947; 83735; 85014; 85018; 85025; 86850; 86900; 86901; 87086; 94002; 96361-59; 96374-59; 96375-59; 96376-59; 99284-25; C1751; J0171; J1100; J1170; J1885; J2405; J2704; J3010; J7030; J7050; J7120; Q9967